=== PATIENT | male | born 2005 | race Caucasian/White ===

== ENCOUNTER 2025-04-30 15:02 | Emergency (ER) | payer OTHER ==
[~2025-04-30] VITALS: Ht 175.3 cm; Wt 69.6 kg
[2025-04-30] MEDS ORDERED: TETRACAINE HCL 0.5% 4 ML BTL OU PRN (18:00)
[2025-04-30] MEDS ORDERED: DIPHTH,PERTUSS(ACELL),TET VAC 0.5 ML SYRINGE IM ONE (19:45)
[2025-04-30] MEDS ORDERED: MAXITROL EYE DRO5 ML OPTH (20:42)
[2025-04-30] MEDS ORDERED: NEOMYCIN/POLYMYXIN/DEXAMETH OPTH SUSPENSION BOTTLE OD ONE (20:45)
[2025-04-30 20:56] VITALS: BP 119/81
== END 2025-04-30 20:56 | disposition home or self-care (01) ==
LOC: ED 15:02
DX: T15.91XA Foreign body on external eye, part unspecified, right eye, initial encounter (principal)
CPT/HCPCS: 65205; 90471; 90715; 99283-25